=== PATIENT | male | born 1950 | race Two or more races ===

== ENCOUNTER 2016-08-11 15:35 | Inpatient (IN) | payer OTHER ==
[~2016-08-11] VITALS: Ht 172.7 cm; Wt 83.9 kg
--- NOTE | 2016-08-11 15:44 | NUR ---
PT BBRA 39 FROM [facility]: SUBSTERNAL CHEST PAIN, ASA 162 GIVEN IN FIELD DEPARTMENT HEAD [employer]. DENIES PAIN ON ARRIVAL.
--- NOTE | 2016-08-11 15:44 | NUR ---
PLACED ON MONITOR. GOWNED PT/ PT HAS RHAND #18 IV ACCESS. AWAITING MD ORDER.
[2016-08-11 15:48] LABS: BASOPHILS % (AUTO) 0.2 % (0.0-2.0); EOSINOPHILS # (AUTO) 0.2 /CMM (0.0-0.7); HEMATOCRIT 50 % (39-51); HEMOGLOBIN 16.8 g/dL (13.5-17.5); LYMPHOCYTES # (AUTO) 2.5 /CMM (0.8-4.8); LYMPHOCYTES % (AUTO) 31.9 % (20.0-44.0); MEAN CORPUSCULAR HEMOGLOBIN 32 PG (26.0-33.0); MEAN CORPUSCULAR HGB CONC 34 g/dl (31.0-36.0); MEAN CORPUSCULAR VOLUME 95 fL (80-96); MONOCYTES # (AUTO) 0.7 /CMM (0.1-1.30); MONOCYTES % (AUTO) 9.4 % (2.0-12.0); NEUTROPHILS # (AUTO) 4.4 /CMM (1.8-8.9); NEUTROPHILS % (AUTO) 56.5 % (43.0-81.0); PLATELET COUNT (AUTO) 229 /CMM (150-450); RDW COEFFICIENT OF VARIATION 11.5 (11.5-15.0); RED BLOOD CELL COUNT(AUTO) 5.25 MIL/uL (4.5-6.0); WHITE BLOOD COUNT (AUTO) 7.8 K/uL (4.3-11.0)
[2016-08-11] MEDS ORDERED: ASPIRIN 325 MG TABLET ONE (15:57)
[2016-08-11] MEDS ORDERED: NITROGLYCERIN PACKET 1 GM PACKET ONE (15:57)
[2016-08-11 15:58] LABS: CALCIUM, SERUM 8.9 mg/dL (8.5-10.1); CARBON DIOXIDE 25 mmol/L (21-32); CHLORIDE 100 mmol/L (98-107); CREATININE 1.1 mg/dL (0.6-1.3); GLUCOSE 287 mg/dL (74-106); POTASSIUM 4.5 mmol/L (3.5-5.1); SODIUM SERUM 132 mmol/L (136-145); UREA NITROGEN, BLOOD 20 mg/dL (7-18)
[2016-08-11] MEDS ORDERED: NITROGLYCERIN PACKET 1 GM PACKET TD ONE (16:00)
[2016-08-11] MEDS ORDERED: ASPIRIN 325 MG TABLET PO ONE (16:00)
[2016-08-11 16:03] LABS: INR 0.98 (0.87-1.13); PROTHROMBIN TIME 10.2 SECS (9.5-12.7)
[2016-08-11 16:04] LABS: ALANINE AMINOTRANSFERASE 35 U/L (12-78); ALBUMIN 3.3 g/dL (3.4-5.0); ALKALINE PHOSPHATASE 103 U/L (46-116); ASPARTATE AMINOTRANSFERASE 21 U/L (15-37); BILIRUBIN,DIRECT 0.1 mg/dL (0.0-0.2); BILIRUBIN,TOTAL 0.2 mg/dL (0.2-1.0); TOTAL PROTEIN, SERUM 7.3 g/dL (6.4-8.2)
[2016-08-11] MEDS ORDERED: ATOR10TA PO (16:04)
[2016-08-11] MEDS ORDERED: METF10002 PO (16:04)
[2016-08-11] MEDS ORDERED: OLAN10TA3 PO (16:04)
[2016-08-11] MEDS ORDERED: TEMA30CA5 PO (16:04)
[2016-08-11] MEDS ORDERED: OMEP20TA68 PO (16:04)
[2016-08-11] MEDS ORDERED: GABA-534 PO (16:04)
[2016-08-11] MEDS ORDERED: CLON1TAB PO (16:04)
[2016-08-11] MEDS ORDERED: MIRT30TA7 PO (16:04)
[2016-08-11] MEDS ORDERED: INSU100V3 SQ (16:04)
[2016-08-11 16:06] LABS: TROPONIN I < 0.017 ng/mL (0.00-0.056)
--- NOTE | 2016-08-11 16:36 | NUR ---
TELE 322-2
--- NOTE | 2016-08-11 16:52 | NUR ---
GAVE REPORT REPORT TO [facility] ROOM 322-[address] SANCHEZ ADMITTING. DX CHEST PAIN
[2016-08-11 17:00] VITALS: BP 117/74
--- NOTE | 2016-08-11 17:05 | NUR ---
TRANSFERRED TO ROOM 322-2 IN STABLE CONDITION
--- NOTE | 2016-08-11 17:15 | NUR ---
POT SANDERSALES CLERK NOTE RECEIVED REPORT FROM RAHUL BARBER. PATIENT CAME IN TO EMERGENCY ROOM COMPLAINING OF 6/10 CHEST PAIN. PATIENT IS ALERT AND ORIENTED x4. NO CURRENT PAIN AT THIS TIME. NO SOB OR DISTRESS NOTED. CALL LIGHT WITHIN REACH. SAFETY MEASURES IMPLEMENTED. LEFT WRIST 18 GAUGE IV INTACT AND PATENT NO REDNESS OR SWELLING NOTED. ALL BELONGINGS AT BEDSIDE. SKIN INTACT, BILATERAL LOWER LEGS DISCOLORATION AND BILATERAL FEET DISCOLORATION. ON TELE MONITOR NORMAL SINUS RHYTHM AT 87. CCHO DIET. ON 2L/MIN OXYGEN VIA NASAL CANNULA. WILL CONTINUE TO MONITOR
[2016-08-11] MEDS ORDERED: Z GUARD REMEDY 2 OZ OINT TP PRN (17:30)
[2016-08-11] MEDS ORDERED: MORPHINE SULFATE INJ 2 MG/ML DISP.SYRIN IV PRN (17:30)
[2016-08-11] MEDS ORDERED: ACETAMINOPHEN 325 MG TABLET PO PRN (17:30)
[2016-08-11] MEDS ORDERED: MAG HYDROX/AL HYDROX/SIMETH 30 ML UDC PO PRN (17:30)
[2016-08-11] MEDS ORDERED: ONDANSETRON HCL/PF 4 MG/2 ML VIAL IVP PRN (17:30)
[2016-08-11] MEDS ORDERED: NITROGLYCERIN 0.4 MG/TAB BOTTLE SL PRN (17:30)
[2016-08-11] MEDS ORDERED: DEXTROSE 50%-WATER 50 ML DISP.SYRIN IV PRN (17:30)
[2016-08-11] MEDS ORDERED: MAGNESIUM HYDROXIDE 30 ML UDC PO PRN (17:30)
[2016-08-11] MEDS ORDERED: HYDROCODONE/APAP 5/325MG 1 EACH TABLET PO PRN (17:30)
[2016-08-11] MEDS: BLOOD SUGAR DIAGNOSTIC 1 EACH STRIP IN SCH ×2 (17:33→21:38)
--- NOTE | 2016-08-11 19:11 | NUR ---
TACTICAL DEBRIEFER CLOSING NOTE PATIENT IS ALERT AND ORIENTED x4. NO PAIN AT THIS TIME. NO SOB OR DISTRESS NOTED. CALL LIGHT WITHIN REACH AT ALL TIMES. SAFETY MEASURES IMPLEMENTED. IV INTACT AND PATENT NO REDNESS OR SWELLING NOTED. ABLE TO COMMUNICATE NEEDS IN [place]. WILL ENDORSE TO RECORDS MANAGEMENT CLERK NURSE FOR KASSY
--- NOTE | 2016-08-11 19:30 | NUR ---
[facility] INITIAL NOTE RECEIVED PT AWAKE AND ALERT/ORIENTED X4, MOSTLY TURKM[place] SPEAKING, NO COMPLAINT OF PAIN OR RESPIRATORY DISTRESS REPORTED DURING PHYSICAL ASSESSMENT, PT IS CLEAN/DRY AND COMFORTABLE, SHOWING SR IN THE TELE MONITOR, PT IS AMBULATORY WITH A STEADY GAIT, SAFETY MEASURES WILL BE MAINTAINED AT ALL TIMES, NEEDS WILL BE ANTICIPATED AND ATTENDED TO PROMPTLY.
[2016-08-11 20:00] VITALS: BP 111/73
[2016-08-11] MEDS: ATORVASTATIN 10 MG TABLET PO SCH (21:38)
[2016-08-11] MEDS: MIRTAZAPINE 15 MG TABLET PO SCH (21:39)
[2016-08-11] MEDS: ZOLPIDEM TARTRATE 5 MG TABLET PO PRN (21:49)
[2016-08-11] MEDS: INSULIN REGULAR, HUMAN 100 UNIT/ML 3 ML VIAL SQ PRN (21:49)
[2016-08-12] VITALS: BP 129/73
[2016-08-12 04:00] VITALS: BP 127/85
[2016-08-12] MEDS: BLOOD SUGAR DIAGNOSTIC 1 EACH STRIP IN SCH ×4 (06:36→22:10)
[2016-08-12] MEDS: PANTOPRAZOLE 40 MG TABLET.DR PO SCH (06:37)
[2016-08-12] MEDS: INSULIN REGULAR, HUMAN 100 UNIT/ML 3 ML VIAL SQ PRN ×4 (06:42→22:17)
[2016-08-12 06:57] LABS: CALCIUM, SERUM 8.7 mg/dL (8.5-10.1); CREATININE 0.8 mg/dL (0.6-1.3); MAGNESIUM 1.8 mg/dL (1.8-2.4); PHOSPHORUS 3.9 mg/dL (2.5-4.9); POTASSIUM 4.6 mmol/L (3.5-5.1); THYROID STIMULATING HORMONE 4.65 uIU/mL (0.358-3.74)
[2016-08-12 06:58] LABS: BASOPHILS % (AUTO) 0.3 % (0.0-2.0); EOSINOPHILS # (AUTO) 0.1 /CMM (0.0-0.7); EOSINOPHILS % (AUTO) 1.6 % (0.0-6.0); HEMATOCRIT 49 % (39-51); HEMOGLOBIN 16.7 g/dL (13.5-17.5); LYMPHOCYTES # (AUTO) 2.1 /CMM (0.8-4.8); LYMPHOCYTES % (AUTO) 22.9 % (20.0-44.0); MEAN CORPUSCULAR HEMOGLOBIN 33 PG (26.0-33.0); MEAN CORPUSCULAR HGB CONC 34 g/dl (31.0-36.0); MEAN CORPUSCULAR VOLUME 95 fL (80-96); MONOCYTES # (AUTO) 0.8 /CMM (0.1-1.30); MONOCYTES % (AUTO) 8.9 % (2.0-12.0); NEUTROPHILS % (AUTO) 66.3 % (43.0-81.0); PLATELET COUNT (AUTO) 213 /CMM (150-450); RDW COEFFICIENT OF VARIATION 12.3 (11.5-15.0); WHITE BLOOD COUNT (AUTO) 9.1 K/uL (4.3-11.0)
[2016-08-12 07:24] VITALS: BP 112/75
--- NOTE | 2016-08-12 07:30 | NUR ---
RN OPEN NOTES RECEIVED REPORT FROM TALENT DEVELOPMENT ANALYST NURSE. PATIENT IS IN BED, ALERT AND ORIENTED TO NAME, PLACE, AND TIME. THAI SPEAKER. NO SIGNS AND SYMPTOMS OF DISTRESS. DENIED CHEST PAIN. BED IN LOW POSITION, LOCKED AND 2 SIDE RAILS ARE UP. CALL LIGHT WITHIN REACH. WILL CONTINUE TO MONITOR AND ASSESS PATIENT THROUGH OUT MY SHIFT.
--- NOTE | 2016-08-12 07:31 | NUR ---
MEDICAL OFFICE RECEPTIONIST ASSISTANT CLOSING NOTE PT IS STABLE AND COMFORTABLE, ENDORSED TO INCOMING NURSE FOR KASSY.
--- NOTE | 2016-08-12 07:31 | NUR ---
RECEIVING TANK OPERATOR CLOSING NOTE PT IS STABLE AND COMFORTABLE, ENDORSED TO INCOMING NURSE FOR KASSY.
[2016-08-12] MEDS: METFORMIN 500 MG TABLET PO SCH ×2 (08:11→17:21)
[2016-08-12] MEDS: GABAPENTIN 300 MG CAPSULE PO SCH ×2 (08:11→17:21)
[2016-08-12] MEDS: clonazePAM 1 MG TABLET PO SCH ×3 (08:12→17:21)
[2016-08-12] MEDS: ASPIRIN EC 81 MG TABLET.DR PO SCH (08:12)
[2016-08-12] MEDS: OLANZAPINE 10 MG TABLET PO SCH ×2 (08:12→17:21)
[2016-08-12] MEDS ORDERED: REGADENOSON 0.4 MG/5 ML DISP.SYRIN IVP ONE (09:30)
--- NOTE | 2016-08-12 10:42 | NUR ---
LAWNMOWER REPAIR MECHANIC AT BED SIDE
[2016-08-12 16:00] VITALS: BP 108/73
--- NOTE | 2016-08-12 18:55 | NUR ---
RN CLOSING NOTES PATIENT IS IN BED, ALERT AND ORIENTED TO NAME, TIME AND PLACE. NO SIGNS AND SYMPTOMS OF DISTRESS. STRESS TEST IS SCHEDULE FOR TOMORROW 08/03/16 IN AM, PATIENT TO BE NPO FROM MIDNIGHT. PATIENT DENIED PAIN. AMBULATORY. BED IN LOW POSITION, LOCKED AND 2 SIDE RAILS ARE UP. ALL NEEDS ANTICIPATED. WILL ENDORSE TO DOPE MAINTENANCE WORKER NURSE FOR KASSY.
--- NOTE | 2016-08-12 19:30 | NUR ---
MS RN INITIAL NOTE RECEIVED PT AWAKE AND ALERT/ORIENTED X4, MOSTLY SYRIAC SPEAKING, HE COMPLAINS OF EPIGASTRIC PAIN, DENIES ANY CHEST PAIN, REFUSING PAIN MEDICATION AT THIS MOMENT HE STATES NOT NEEDING IT, EXPLAINED RISK AND BENEFITS OF ADDRESSING PAIN AT AN EARLY STAGE, PT CONTINUES TO REFUSE, NO RESPIRATORY DISTRESS NOTED DURING PHYSICAL ASSESSMENT, NO COMPLAINT OF PAIN OR RESPIRATORY DISTRESS REPORTED DURING PHYSICAL ASSESSMENT, PT IS CLEAN/DRY AND COMFORTABLE, AMBULATORY WITH A STEADY GAIT, SAFETY MEASURES WILL BE MAINTAINED AT ALL TIMES, NEEDS WILL BE ANTICIPATED AND ATTENDED TO PROMPTLY.
[2016-08-12 20:00] VITALS: BP 112/77
[2016-08-12] MEDS: ATORVASTATIN 10 MG TABLET PO SCH (22:10)
[2016-08-12] MEDS: MIRTAZAPINE 15 MG TABLET PO SCH (22:10)
[2016-08-12] MEDS: ZOLPIDEM TARTRATE 5 MG TABLET PO PRN (22:11)
[2016-08-13] MEDS: BLOOD SUGAR DIAGNOSTIC 1 EACH STRIP IN SCH ×2 (06:57→11:34)
--- NOTE | 2016-08-13 07:11 | NUR ---
MS RN CLOSING NOTE PT REMAINED STABLE DURING POULTRY HATCHERY MANAGER, ALL NEEDS WERE MET, SAFETY MEASURES OBSERVED AT ALL TIMES, NEEDS ANTICIPATED AND ATTENDED TO, WILL ENDORSE TO INCOMING NURSE FOR KASSY.
[2016-08-13] MEDS: PANTOPRAZOLE 40 MG TABLET.DR PO SCH (07:30)
--- NOTE | 2016-08-13 07:45 | NUR ---
RN NOTES RECEIVED PATIENT ASLEEP, RESTING COMFORTABLY IN BED,EASILY AROUSABLE DURING CARE, VIETNAMESE SPEAKING. RESPIRATIONS EVEN AND UNLABORED, DENIES ANY PAIN OR DISCOMFORT AT THIS TIME, KEPT CLEAN DRY AND COMFORTABLE, CALL LIGHT WITHIN EASY REACH. SIDERAILS UP X2 FOR SAFETY,WILL CONTINUE TO MONITOR
[2016-08-13 08:00] VITALS: BP 113/78
[2016-08-13] MEDS: OLANZAPINE 10 MG TABLET PO SCH (09:38)
[2016-08-13] MEDS: clonazePAM 1 MG TABLET PO SCH ×2 (09:38→12:08)
[2016-08-13] MEDS: METFORMIN 500 MG TABLET PO SCH (09:38)
[2016-08-13] MEDS: GABAPENTIN 300 MG CAPSULE PO SCH (09:38)
[2016-08-13] MEDS: ASPIRIN EC 81 MG TABLET.DR PO SCH (09:38)
[2016-08-13] MEDS: INSULIN REGULAR, HUMAN 100 UNIT/ML 3 ML VIAL SQ PRN (11:40)
--- NOTE | 2016-08-13 16:10 | NUR ---
RN NOTES PATIENT WITH ORDERS FOR DISCHARGE, ALL DUE MEDICATIONS GIVEN ORDERED WITH NO ASE NOTED NO S/S OF HYPO/HYPERGLYCEMIA NOTED. RESPIRATIONS EVEN AND UNLABORED, DENIES ANY PAIN OR DISCOMFORT AT THIS TIME. REFUSES PICTURES OF SKIN TO BE TAKEN X3 STATES" I JUST WANT TO GO HOME" ALL BELONGINGS ACCOUNTED FOR, ALL APPROPRIATE PAPERWORK AND DISCHARGE INSTRUCTIONS PROVIDED IN AUSTRALIAN WITH VERBAL UNDERSTANDING NOTED. PATIENT DISCHARGED IN STABLE CONDITION, ASSISTED TO LOBBY BY RN.
== END 2016-08-13 16:00 | disposition home or self-care (01) | DRG 203 ==
LOC: ER 15:39 → TELE 17:10 → MED 08-12 10:26
DX: M94.0 Chondrocostal junction syndrome [Tietze] (principal); E87.1 Hypo-osmolality and hyponatremia; I10 Essential (primary) hypertension; E11.9 Type 2 diabetes mellitus without complications; E78.5 Hyperlipidemia, unspecified; F32.9 Major depressive disorder, single episode, unspecified; Z79.899 Other long term (current) drug therapy; K21.9 Gastro-esophageal reflux disease without esophagitis; F17.200 Nicotine dependence, unspecified, uncomplicated
CPT/HCPCS: 36415; 71010-TC; 80048-TC; 80061-TC; 80076-TC; 82962-TC; 83735-TC; 83880; 84100-TC; 84439-TC; 84443-TC; 84484-TC; 85025-TC; 85730-TC; 87081-TC; 93307-TC; A4606; A9502; J1815; J2785; Z7610